=== PATIENT | male | born 1940 | race Hispanic/Latino ===

== ENCOUNTER 2019-05-31 23:47 | Emergency (ER) | payer MEDICARE, MEDICAID ==
[2019-05-31 23:47] VITALS: BP_SYST 82; BP_SYST 83; BP_DIAS 39
[2019-06-01] VITALS: BP 82/40
[2019-06-01] MEDS ORDERED: NS 1000ML 1,000 ML ONE ×2 (00:33→01:25)
--- NOTE | 2019-06-01 00:37 | ER.PDOC ---
General Chief Complaint: Requesting Medical Care Stated Complaint: ABD PAIN Time seen by MD: 00:37 Source: patient Exam Limitations: physical impairment, other History of Present Illness Initial Comments 78 Y/O MALE FROM [facility] WITH LIMITED HX OF ABD PAIN AND DIARRHEA, BY EMS. MIN REPORT GIVEN . PATIENT IN NH FROM INFECTION YRS AGO FROM SYPHILIS. P ATIENT GIVES NO HX. PATIENT VOICES NO COMPLAINTS. Timing/Duration: other Severity/Quality: other Radiation: other Associated Symptoms: denies symptoms Allergies: Coded Allergies: codeine (Verified Allergy, Unknown, 06/01/19) Vital Signs First Vital Signs Date Time Temp Pulse Resp B/P (MAP) Pulse Ox O2 Delivery O2 Flow Rate FiO2 05/31/19 23:47 99.9 120 20 83/39 (54) 96 Room Air Last Vital Signs Date Time Temp Pulse Resp B/P (MAP) Pulse Ox O2 Delivery O2 Flow Rate FiO2 06/01/19 03:32 114 18 117/51 (73) 96 Room Air 05/31/19 23:47 99.9 Past Medical History Medical History: other Surgical History: other Constitutional: fever EENTM: no symptoms reported Respiratory: no symptoms reported Cardiovascular: no symptoms reported Gastrointestinal: abdomen distended, abdominal pain, diarrhea Genitourinary: no symptoms reported Musculoskeletal: no symptoms reported Skin: no symptoms reported Psychiatric/Neurological: no symptoms reported Endocrine: no symptoms reported Hematologic/Lymphatic: no symptoms reported Physical Exam General Appearance: No Apparent Distress, Obese, Other HEENT: PERRL/EOMI, Normal ENT Inspection, Other Neck: Non-Tender, Full Range of Motion, Supple, Normal Inspection Respiratory: chest non-tender, lungs clear, normal breath sounds, no respira tory distress, no accessory muscle use Cardiovascular: Normal Peripheral Pulses, Regular Rate, Rhythm, No Edema, No Gallop, No JVD, No Murmur Gastrointestinal: Normal Bowel Sounds, Soft, Tenderness Back: Normal Inspection, No CVA Tenderness, No Vertebral Tenderness Extremities: Normal Range of Motion, Non-Tender, Normal Inspection Neurologic/Psychiatric: Disoriented x 3 Skin: Normal Color, Warm/Dry Lymphatic: No Adenopathy Comments ABD --MILD TENDER IN ALL 4 Q, NO R/CVA/G. EQUAL FEMORAL PULSES. Results/Orders Results/Orders Orders - FABRIZIO MONTILLA DO Cbc With Auto Diff (06/01/19 00:44) Comprehensive Metabolic Panel (06/01/19 00:44) Urinalysis (06/01/19 00:44) Blood Culture (06/01/19 00:44) Lactic Acid(Ml) (06/01/19 00:44) Creatine Kinase Mb (06/01/19 00:44) Troponin I (06/01/19 00:44) Influenza A&B (06/01/19 00:44) Xr Chest 1v (06/01/19 00:44) Creatine Kinase (06/01/19 00:44) Place Campos Catheter (06/01/19 00:44) Ekg-Routine (06/01/19 00:51) 0.9 % Sodium Chloride (Ns 1000ml) (06/01/19 01:25) Ct Abd/Pelvis Wo Iv Contrast (06/01/19 00:44) Urine Culture (06/01/19 01:25) Piperacillin Sodium/Tazobactam (Zosyn 4. (06/01/19 02:15) 0.9 % Sodium Chloride (Ns 100ml) (06/01/19 02:18) Bedside Glucose (06/01/19 02:58) Vital Signs Date Time Temp Pulse Resp B/P (MAP) Pulse Ox O2 Delivery O2 Flow Rate FiO2 06/01/19 03:32 114 18 117/51 (73) 96 Room Air 06/01/19 03:04 114 20 107/88 (94) 97 Room Air 06/01/19 01:49 114 20 104/83 (90) 96 Room Air 06/01/19 00:50 107 20 84/47 (59) 97 Room Air 06/01/19 00:00 110 20 82/40 (54) 96 Room Air 05/31/19 23:47 99.9 120 20 96 Room Air 05/31/19 23:47 99.9 120 20 83/39 (54) 96 Room Air Administered Medications Medications (Trade) Dose Ordered Sig/Cassius Route PRN Reason Start Time Stop Time Status Last Admin Dose Admin Piperacillin Sod/ Tazobactam Sod 4.5 gm/Sodium Chloride 100 ml @ 100 mls/hr STAT STAT IV 06/01/19 02:15 06/01/19 03:14 DC 06/01/19 02:28 100 MLS/HR Laboratory Tests Test 06/01/19 01:00 06/01/19 01:05 06/01/19 01:23 06/01/19 01:25 White Blood Count 17.6 10^3/uL (4.5-11.0) H Red Blood Count 4.48 10^6/uL (4.50-5.90) L Hemoglobin 11.3 g/dL (13.9-16.3) L Hematocrit 35.9 % (37.0-53.0) L Mean Corpuscular Volume 80.1 fL (78-100) Mean Corpuscular Hemoglobin 25.2 pg (26-34) L Mean Corpuscular Hemoglobin Concent 31.5 g/dL (33-37) L Red Cell Distribution Width 15.3 % (11.5-14.5) H Platelet Count 355 10^3/uL (150-400) Mean Platelet Volume 11.8 fL (7.8-11.0) H Neutrophils (%) (Auto) 74.2 % (41.0-85.0) Lymphocytes (%) (Auto) 17.0 % (24.0-44.0) L Monocytes (%) (Auto) 7.5 % (5.0-12.0) Neutrophils # (Auto) 13.0 10^3/uL (1.8-7.7) H Lymphocytes # (Auto) 3.0 10^3/uL (1.0-4.8) Monocytes # (Auto) 1.3 10^3/uL (0.3-0.8) H Absolute Immature Granulocyte (auto 0.15 10^3 u/L (0-2) Immature Granulocytes % 0.90 % (0.00-0.50) H Eosinophils % 0.2 % (0.0-5.0) Basophils % 0.2 % (0.0-0.2) Basophils # 0.0 10^3/uL (0.0-0.1) Eosinophil Count 0.0 10^3/uL (0.0-0.2) Sodium Level 152 mmol/L (132-145) H Potassium Level 4.7 mmol/L (3.6-5.2) Chloride Level 118.0 mmol/L (96-109) H Carbon Dioxide Level 18.3 mmol/L (20.0-32) L Anion Gap 20.4 Blood Urea Nitrogen 83 mg/dL (7-18) H Creatinine 4.89 mg/dL (0.59-1.40) *H Estimated GFR () 14.0 (>/=60) BUN/Creatinine Ratio 16.0 Glucose Level 231 mg/dL (70-110) H Lactic Acid Level 1.9 mmol/L (0.50-2.00) Calcium Level 9.0 mg/dL (8.4-10.5) Total Bilirubin 0.5 mg/dL (0.2-1.0) Aspartate Amino Transferase (AST) 94 U/L (0-35) H Alanine Aminotransferase (ALT) 65 U/L (12-78) Alkaline Phosphatase 148 U/L (50-136) H Total Creatine Kinase 1888 U/L (39-308) *H Creatine Kinase MB 11.1 ng/mL (0.5-3.6) *H Troponin I 0.36 ng/mL (0.00-0.05) H Total Protein 6.9 g/dL (6.4-8.2) Albumin 1.7 g/dL (3.4-5.0) L Globulin 5.2 Influenza Type A Antigen NEGATIVE (NEG) Influenza B Immunofluorescence NEGATIVE (NEG) Urine Collection Type CATH Urine Color DARK YELLOW (YELLOW) H Urine Appearance CLOUDY (CLEAR) H Urine Bilirubin 3 MG/DL (NEGATIVE) H Urine Ketones 5 mg/dL (NEGATIVE) H Urine Specific [place] 1.025 (1.005-1.035) Urine pH 6.5 (5.0-6.0) Urine Protein 500 mg/dL (NEGATIVE) H Urine Urobilinogen 1.0 (NEGATIVE) H Urine Nitrate NEGATIVE (NEGATAIVE) Urine Leukocyte Esterase 500/uL 2+ (NEGATIVE) Urine Blood 150 3+ (NEGATIVE) H Urine RBC 5-10 RBC/HPF (NONE SEEN) H Urine WBC TNTC WBC/HPF (0-2) H Urine Squamous Epithelial Cells FEW #/HPF (FEW) Urine Renal Epithelial Cells NONE SEEN #/HPF (NONE Urine Amorphous Sediment LARGE (NONE SEEN) Urine Bacteria MANY (NONE SEEN) H Urine Glucose NORMAL (NEGATIVE) Differential Total Cells Counted 100 #CELLS Segmented Neutrophils 79 % (31-76) H Lymphocytes 12 % (25-36) L Monocytes 5 % (3-9) Basophils 1 % (0-2) Atypical Lymphocytes 3 % Platelet Estimate ADEQUATE Platelet Morphology NORMAL Hypochromasia 1+ (NEGATIVE) Anisocytosis 1+ (NEGATIVE) Test 06/01/19 02:58 POC Glucose 201 (70 - 110) H Progress Progress PATIENT BETTER, V/S STABLE, MORE RESPONSIVE--WILL TRANSFER TO [facility]. EKG/XRAY/CT/US EKG Comments: ECG--SINUS TACH, RATE-119, NO STEMI SEEN Consult/PCP Time Consult/PCP Called: 03:50 Consult/PCP: MICHELET--[facility], ADMIT TO DR ESPANA. Reason/Comments: NO NEPHRO Course Vitals & review Data Vital Sign - Last 24 Hours 05/31/19 05/31/19 06/01/19 06/01/19 23:47 23:47 00:00 00:50 Temp 99.9 99.9 Pulse 120 120 110 107 Resp 20 20 20 20 B/P (MAP) 83/39 (54) 82/40 (54) 84/47 (59) Pulse Ox 96 96 96 97 O2 Delivery Room Air Room Air Room Air Room Air 06/01/19 06/01/19 06/01/19 01:49 03:04 03:32 Pulse 114 114 114 Resp 20 20 18 B/P (MAP) 104/83 (90) 107/88 (94) 117/51 (73) Pulse Ox 96 97 96 O2 Delivery Room Air Room Air Room Air Intake and Output 05/31/19 05/31/19 06/01/19 15:00 23:00 07:00 Output Total 10 ml Balance -10 ml Laboratory Tests Test 06/01/19 01:00 06/01/19 01:05 06/01/19 01:23 06/01/19 01:25 White Blood Count 17.6 10^3/uL Red Blood Count 4.48 10^6/uL Hemoglobin 11.3 g/dL Hematocrit 35.9 % Mean Corpuscular Volume 80.1 fL Mean Corpuscular Hemoglobin 25.2 pg Mean Corpuscular Hemoglobin Concent 31.5 g/dL Red Cell Distribution Width 15.3 % Platelet Count 355 10^3/uL Mean Platelet Volume 11.8 fL Neutrophils (%) (Auto) 74.2 % Lymphocytes (%) (Auto) 17.0 % Monocytes (%) (Auto) 7.5 % Neutrophils # (Auto) 13.0 10^3/uL Lymphocytes # (Auto) 3.0 10^3/uL Monocytes # (Auto) 1.3 10^3/uL Absolute Immature Granulocyte (auto 0.15 10^3 u/L Immature Granulocytes % 0.90 % Eosinophils % 0.2 % Basophils % 0.2 % Basophils # 0.0 10^3/uL Eosinophil Count 0.0 10^3/uL Sodium Level 152 mmol/L Potassium Level 4.7 mmol/L Chloride Level 118.0 mmol/L Carbon Dioxide Level 18.3 mmol/L Anion Gap 20.4 Blood Urea Nitrogen 83 mg/dL Creatinine 4.89 mg/dL Estimated GFR () 14.0 BUN/Creatinine Ratio 16.0 Glucose Level 231 mg/dL Lactic Acid Level 1.9 mmol/L Calcium Level 9.0 mg/dL Total Bilirubin 0.5 mg/dL Aspartate Amino Transf (AST/SGOT) 94 U/L Alanine Aminotransferase (ALT/SGPT) 65 U/L Alkaline Phosphatase 148 U/L Total Creatine Kinase 1888 U/L Creatine Kinase MB 11.1 ng/mL Troponin I 0.36 ng/mL Total Protein 6.9 g/dL Albumin 1.7 g/dL Globulin 5.2 Influenza Type A Antigen NEGATIVE Influenza B Immunofluorescence NEGATIVE Urine Collection Type CATH Urine Color DARK YELLOW Urine Appearance CLOUDY Urine Bilirubin 3 MG/DL Urine Ketones 5 mg/dL Urine Specific [place] 1.025 Urine pH 6.5 Urine Protein 500 mg/dL Urine Urobilinogen 1.0 Urine Nitrate NEGATIVE Urine Leukocyte Esterase 500/uL 2+ Urine Blood 150 3+ Urine RBC 5-10 RBC/HPF Urine WBC TNTC WBC/HPF Urine Squamous Epithelial Cells FEW #/HPF Urine Renal Epithelial Cells NONE SEEN #/HPF Urine Amorphous Sediment LARGE Urine Bacteria MANY Urine Glucose NORMAL Differential Total Cells Counted 100 #CELLS Segmented Neutrophils 79 % Lymphocytes 12 % Monocytes 5 % Basophils 1 % Atypical Lymphocytes 3 % Platelet Estimate ADEQUATE Platelet Morphology NORMAL Hypochromasia 1+ Anisocytosis 1+ Test 06/01/19 02:58 Bedside Glucose 201 Current Medications Medications (Trade) Dose Ordered Sig/Cassius PRN Reason Start Time Stop Time Status Last Admin Piperacillin Sod/ Tazobactam Sod 4.5 gm/Sodium Chloride 100 ml @ 100 mls/hr STAT STAT 06/01/19 02:15 06/01/19 03:14 06/01/19 02:28 Departure Time of Disposition: 03:54 Disposition: 70 DISC/XFER TO [facility]OTH TYP [facility] Impression: Primary Impression: UTI (urinary tract infection) Additional Impressions: Dehydration Rhabdomyolysis Renal insufficiency Gall stones Condition: Stable If Transfer, List PT Destinati: [facility] Referrals: TERRI COTTO MD (PCP) PRIMARY CARE PROVIDER Duration or Time Spent with Pa: 20 MIN. Problem Qualifiers FABRIZIO MONTILLA DO Jun 01, 2019 00:37
[2019-06-01 00:50] VITALS: BP 84/47
--- NOTE | 2019-06-01 01:02 | PCM.EKG ---
[facility] Test Date: 2019-06-01 Test Time: 01:00:13 Pat Name: JASPER NGUYEN Department: Patient ID: [facility]-[id number] Room: Gender: M Residence Director: ely : 1940 Requested By: JAI MESA Order Number: [id number] Reading MD: Jai Mesa Measurements Intervals [place] Rate: 119 P: -24 CO: 151 QRS: 27 QRSD: 98 T: 37 QT: 330 QTc: 465 Interpretive Statements Sinus tachycardia Low voltage, extremity and precordial leads No previous ECG available for comparison Electronically Signed On 06-12-2019 8:06:46 [employer]PA[employer] by Jai Mesa Please click the below link to view image of tracing.
[2019-06-01 01:11] LABS: BASOPHIL % 0.2 % (0.0-0.2); EOSINOPHIL % 0.2 % (0.0-5.0); MEAN CORP HGB 25.2 pg (26-34); MONOCYTES # 1.3 10^3/uL (0.3-0.8); MONOCYTES % 7.5 % (5.0-12.0); NEUTROPHILS % 74.2 % (41.0-85.0); RED CELL DISTRIBUTION WIDTH 15.3 % (11.5-14.5)
--- NOTE | 2019-06-01 01:37 | DIREP ---
PROCEDURE:CHEST 1 VIEW COMPARISON:[facility], CR, XRAY CHEST SINGLE VW, 05/04/2016, 10:42 AM. INDICATIONS:FEVER FINDINGS: LUNGS/PLEURA:Mild streaky opacities in the medial aspect of the left lung base. No confluent pulmonary infiltrate. No effusions. No pneumothorax. VASCULATURE:Prominent pulmonary arteries CARDIAC:No cardiac silhouette abnormality or cardiomegaly. MEDIASTINUM:No visible mass or adenopathy. BONES:Healed left-sided rib fractures. OTHER:Negative. CONCLUSION: 1. Mild streaky opacities in the medial aspect of the left lung base may represent scarring, atelectasis or early infiltrate. Dictated by: Luiza Mckeon MD on 06/01/2019 at 01:33 AM
[2019-06-01 01:49] VITALS: BP 104/83
[2019-06-01 01:54] LABS: APPEARANCE,URINE CLOUDY (CLEAR); UA COLOR DARK YELLOW (YELLOW)
[2019-06-01 01:56] LABS: CARBON DIOXIDE 18.3 mmol/L (20.0-32)
[2019-06-01 01:57] LABS: BILIRUBIN,URINE 3 MG/DL (NEGATIVE)
[2019-06-01] MEDS ORDERED: ZOSYN 4.5 GM 4.5 GM in NS 100ML 100 ML IV STA (02:15)
[2019-06-01] MEDS ORDERED: NS 100ML 100 ML IV ONE (02:18)
[2019-06-01 02:31] LABS: LYMPHOCYTE 12 % (25-36); SEGMENTED NEUTROPHILS 79 % (31-76)
[2019-06-01 02:32] LABS: ANISOCYTOSIS 1+ (NEGATIVE); BASOPHIL 1 % (0-2); MONOCYTE 5 % (3-9)
[2019-06-01 03:04] VITALS: BP 107/88
--- NOTE | 2019-06-01 03:24 | DIREP ---
PROCEDURE:CT ABDOMEN/PELVIS WO/ CONTRAST COMPARISON:[facility], CR, XRAY CHEST SINGLE VW, 06/01/2019, 00:53 AM. INDICATIONS:DIARRHEA, ABD PAIN TECHNIQUE:Axial images were created through the abdomen and pelvis without intravenous contrast material. No oral contrast was administered. Sagittal and coronal reconstructions were performed from source images. FINDINGS: LOWER CHEST:Mild dependent atelectasis. Osseous hypertrophy at the left manubrium on the 1st image of the study may be degenerative. Multiple left-sided rib fractures, healed. Coronary calcifications. LIVER: No hepatic lesion. Streak artifacts through the liver due to the patient's arm being down. BILIARY: Gallbladder is contracted, filled with gallstones., no intra or extrahepatic biliary dilation. PANCREAS: Unremarkable. SPLEEN: Normal, nonenlarged. KIDNEYS: No renal mass. No hydronephrosis or collecting system stone identified. ADRENALS: Normal. AORTA/VASCULAR: Calcified atherosclerosis. No aneurysm. RETROPERITONEUM: No adenopathy or mass. BOWEL/MESENTERY: No evidence of obstruction. Appendix normal. Mild to moderate diffuse rectal wall thickening throughout its length. No perirectal stranding is evident. ABDOMINAL WALL: Normal. No mass or hernia. URINARY BLADDER: Inherently limited evaluation of the wall; Campos. PELVIS: Prostatic tissue present. No adenopathy. BONES: Severe degenerative changes of the left hip. OTHER: No free air or fluid. CONCLUSION: 1. Cholelithiasis. Contracted gallbladder. No infiltration of the pericholecystic fat is evident. 2. Mild to moderate diffuse rectal wall thickening without perirectal edema. This appearance could be exaggerated due to under distention of the lumen or suggest chronic scarring or mild proctitis. Underlying lesion not excluded. Dictated by: Luiza Mckeon MD on 06/01/2019 at 03:18 AM
[2019-06-01 03:32] VITALS: BP 117/51
--- NOTE | 2019-06-01 04:32 | NUR ---
REPORT REPORT GIVEN TO JT AT [facility]
== END 2019-06-01 04:25 | disposition other institution (70) ==
LOC: ER 23:47
DX: E86.0 Dehydration (principal); K80.20 Calculus of gallbladder without cholecystitis without obstruction; M62.82 Rhabdomyolysis; N28.9 Disorder of kidney and ureter, unspecified; N39.0 Urinary tract infection, site not specified; Z88.5 Allergy status to narcotic agent
CPT/HCPCS: 36415; 71045; 74176; 80053; 81000; 82550; 82553; 82948; 83605; 84484; 85025; 87040 ×2; 87077; 87086; 87186; 87804 ×2; 93005; 96365; 99285; J2543; J7030 ×2; J7050 ×2